=== PATIENT | female | born 1960 | race Caucasian/White ===

== ENCOUNTER → 2016-12-14 | Outpatient (CLI) | payer OTHER ==
--- NOTE | 2016-12-14 16:47 | MR ---
MRI of the Left Shoulder History: Prior left shoulder fracture. Follow up. Technique: Axial proton density, oblique coronal, and sagittal T1 and T2 sequences were acquired. Findings: A horizontal fracture line courses through the left humeral neck. The fracture line is stil l visible, with mild residual edema at the fracture line suggesting partial healing. There is bony br idging across the lateral margin of the fracture. No evidence of extension of the fracture to the art icular surface of the left humeral head. No displaced glenoid labral tear identified. Articular cartilage of the glenohumeral joint is intact. Supraspinatus, infraspinatus, subscapularis, teres minor, long head biceps tendons appear normally po sitioned and intact. Acromioclavicular joint is benign in features. IMPRESSION: 1. Horizontal fracture through the left humeral neck, with persistence of fracture line and bone zachary ow edema medially. Bony bridging across the fracture line laterally. 2. No evidence of labral tear. No rotator cuff tendon tear identified.
== END ==
LOC: FIMAGING 12:19
DX: S42.295D Other nondisplaced fracture of upper end of left humerus, subsequent encounter for fracture with routine healing (principal)